=== PATIENT | female | born 1995 | race Two or more races ===

== ENCOUNTER 2021-05-27 13:48 | Emergency (ER) | payer OTHER ==
[~2021-05-27] VITALS: Ht 160 cm; Wt 72.1 kg
[2021-05-27] MEDS ORDERED: PRENATAL + DHA1 EAC1 (14:25)
[2021-05-27] MEDS ORDERED: INTESTINEX680 M1 PO (22:42)
[2021-05-27] MEDS ORDERED: DICY20TA PO (22:42)
[2021-05-27] MEDS ORDERED: AZITHROMYCIN500 MG PO (22:42)
== END 2021-05-27 22:52 | disposition home or self-care (01) ==
LOC: ER 13:48
DX: A09 Infectious gastroenteritis and colitis, unspecified (principal); R10.9 Unspecified abdominal pain

== ENCOUNTER 2021-06-16 10:45 | Outpatient (CLI) | payer OTHER ==
[~2021-06-16 10:45] MED LIST: AZITHROMYCIN500 MG PO; DICY20TA PO; INTESTINEX680 M1 PO; PRENATAL + DHA1 EAC1
== END 2021-06-16 11:47 | disposition home or self-care (01) ==
LOC: PRENATAL 10:45
PROVIDERS: ATTEND Obstetrics & Gynecology Maternal & Fetal Medicine
DX: Z36.89 Encounter for other specified antenatal screening (principal); O36.80X1 Pregnancy with inconclusive fetal viability, fetus 1; Z3A.12 12 weeks gestation of pregnancy

== ENCOUNTER 2021-08-10 13:12 | Outpatient (CLI) | payer OTHER | END 2021-08-10 14:45 | disposition home or self-care (01) | LOC: PRENATAL 13:12 | PROVIDERS: ATTEND Obstetrics & Gynecology Maternal & Fetal Medicine | DX: O35.0XX1 Maternal care for (suspected) central nervous system malformation in fetus, fetus 1 (principal); O35.3XX1 Maternal care for (suspected) damage to fetus from viral disease in mother, fetus 1; O98.512 Other viral diseases complicating pregnancy, second trimester; O35.1XX1 Maternal care for (suspected) chromosomal abnormality in fetus, fetus 1; Z36.89 Encounter for other specified antenatal screening; Z3A.19 19 weeks gestation of pregnancy ==

== ENCOUNTER 2021-11-12 10:30 | Outpatient (CLI) | payer OTHER | END 2021-11-12 11:15 | disposition home or self-care (01) | LOC: PRENATAL 10:30 | PROVIDERS: ATTEND Obstetrics & Gynecology Maternal & Fetal Medicine | DX: O26.849 Uterine size-date discrepancy, unspecified trimester (principal) ==

== ENCOUNTER 2021-12-08 14:15 | Inpatient (IN) | payer OTHER ==
[~2021-12-08] VITALS: Ht 160 cm; Wt 81.2 kg
[2021-12-22] MEDS ORDERED: PRENATAL TABLE1 EAC1 PO (21:52)
[2021-12-25] MEDS ORDERED: IBU800 MG PO (17:16)
[2021-12-25] MEDS ORDERED: SURFAK240 M1 PO (17:18)
[2021-12-25] MEDS ORDERED: SIMETHICONE125 M1 PO (17:20)
== END 2021-12-25 18:37 | disposition home or self-care (01) | DRG 788 ==
LOC: OB/GYN 12-21 14:15 → LDR 12-22 18:28 → OB/GYN 12-23 22:19
PROVIDERS: ADMIT Student in an Organized Health Care Education/Training Program; ATTEND Student in an Organized Health Care Education/Training Program
PROC: 10D00Z1 Extraction of Products of Conception, Low, Open Approach (ICD-10-PCS; principal; 2021-12-22)
PROC: 3E033VJ Introduction of Other Hormone into Peripheral Vein, Percutaneous Approach (ICD-10-PCS; 2021-12-22)
PROC: 4A1HXCZ Monitoring of Products of Conception, Cardiac Rate, External Approach (ICD-10-PCS; 2021-12-22)
DX: O61.0 Failed medical induction of labor (principal); O24.410 Gestational diabetes mellitus in pregnancy, diet controlled; Z3A.39 39 weeks gestation of pregnancy; Z37.0 Single live birth; Z20.822 Contact with and (suspected) exposure to COVID-19